=== PATIENT | male | born 1980 | race Caucasian/White ===

== ENCOUNTER → 2021-02-18 07:23 | Outpatient (CLI) | payer OTHER, SELFPAY ==
--- NOTE | ~2021-02-18 | US_ITS ---
US abdomen complete EXAMINATION: US Abdomen Complete INDICATION: Liver disease PROCEDURE: Realtime High Resolution abdomen ultrasound. COMPARISON: No prior studies for comparison FINDINGS: Gallbladder is contracted limiting evaluation for stones or gallbladder wall thickening. C ommon bile duct measures 4 mm. Liver echotexture is heterogeneous. There is possible mild intrahepatic biliary dilatation.. Pancrea s within normal limits. Pancreatic tail is obscured by bowel gas. Spleen is unremarkeable. Renal ec hotexture is within normal limits bilaterally without hydronephrosis, contour deforming mass or renal stone. Right kidney measures 11.2 cm. Left kidney measures 11.3 cm. Visualized aspects of the aorta and IVC are within normal limits. Portal vein is patent. No sonograph ic Silva's sign indicated by the technologist. IMPRESSION: 1: Heterogeneous liver echotexture with possible mild intrahepatic biliary dilatation. No discrete ma ss. 2: Gallbladder is contracted limiting evaluation for stones or gallbladder wall thickening. Reviewed, dictated and finalized at location B. IMPRESSION: 1: Heterogeneous liver echotexture with possible mild intrahepatic biliary dila tation. No discrete mass. 2: Gallbladder is contracted limiting evaluation for stones or gallbladder wall thickening.
== END ==
PROVIDERS: PCP Emergency Medicine; Visit Provider Emergency Medicine
DX: K76.9 Liver disease, unspecified (principal)
CPT/HCPCS: 76700